=== PATIENT | male | born 1955 | race Caucasian/White ===

== ENCOUNTER 2020-11-17 20:54 | Emergency (ER) | payer SELFPAY ==
--- NOTE | ~2020-11-17 | CT_ITS ---
EXAMINATION: CT HEAD WITHOUT CONTRAST CT FACIAL BONES WITHOUT CONTRAST CT CERVICAL SPINE WITHOUT CONTRAST CLINICAL INFORMATION: Fall. Trauma. COMPARISON: None. TECHNIQUE: Imaging was performed from the skull base to vertex without intravenous administration of contrast. In addition, helical noncontrast CT imaging was acquired through the cervical spine and facial bones and source images were reviewed along with axial reconstructions and sagittal and coronal MPRs. [This CT examination was performed using dose optimization techniques as appropriate, variously including the following: *Automated exposure control *Adjustment of mA and/or kV according to patient size (this includes techniques or standardized protocols for targeted exams where dose is matched to indication/reason for exam; i.e. extremities or head) *Use of iterative reconstruction technique] DLP: 1555 mGy-cm FINDINGS: HEAD: No intracranial mass, hemorrhage, or midline shift is visualized. There is generalized global volume loss. There is mild prominence of the ventricles and the sulci . There is mild hypodensity of the periventricular white matter due to chronic small vessel ischemic disease. There are vascular calcifications of the internal carotid arteries bilaterally. . No extra-axial collections are identified. FACIAL BONES: There is a slightly displaced fracture of the left nasal bone with mild comminution. No other facial bone fracture present. Orbits and retrobulbar structures are normal. There is significant sinus disease of mucosal thickening and small air-fluid levels in the maxillary sinuses bilateral. Mucosal thickening in the ethmoid sinuses. The mastoid air cells and middle ear cavities are normally aerated. CERVICAL SPINE: There is no evidence of acute cervical spine fracture. Vertebral bodies remain normal in height. There is mild to moderate degenerative lipping at the anterior endplates of vertebrae. There is slight disc height narrowing C5-C6 disc level. Facet joints are normal. No pre- or paravertebral soft tissue abnormality is identified. Limited assessment of the lung apices is unremarkable. CT/CT cervical spine wo con IMPRESSION: 1. No acute intracranial abnormality. 2. Fracture of left nasal bone. 3. No acute abnormality of the cervical spine.
[2020-11-17 20:53] VITALS: BP 138/98; PULSE 92; O2SAT 98
[2020-11-17 20:55] VITALS: BMI 25.0
[2020-11-17 20:59] VITALS: BP 147/94; PULSE 83; RESP 18; TEMP 37.2; O2SAT 95
--- NOTE | 2020-11-17 21:56 | ED_ITS ---
HPI - Fall General Chief Complaint: Fall Stated Complaint: fall laceration etoh Time Seen by Provider: 11/17/20 21:56 Source: patient and staff interpreter Mode of arrival: EMS History of Present Illness HPI Narrative: 65-year-old male without significant past medical history states that he drank sixty-eight beers today tripped over the steps and fell down striking his face without loss of consciousness. Patient denies being on any medications and explicitly states he is not on blood thinners. Otherwise, he denies any shortness of breath, chest pain/palpitations, GI symptoms. Related Data Allergies Allergy/AdvReac Type Severity Reaction Status Date / Time No Known Allergies Allergy Verified 11/17/20 20:58 Review of Systems 2 Review of Systems: Pertinent positives and negatives as stated in HPI 10 point review of systems is otherwise negative. FOR[facility], [facility] Past Medical History Source: nursing notes reviewed Medical History ETOH abuse History of fall Social History Social History Advance Directives: No Advance Directives Information Provided: No Physical Exam Vital Signs: Vital Signs: Last Vital Signs Temp 98.8 F 11/17/20 22:36 Pulse 90 11/17/20 22:36 Resp 18 11/17/20 22:36 BP 166/91 H 11/17/20 22:36 Pulse Ox 98 11/17/20 22:36 Body Mass Index 25.0 VITAL SIGNS: Reviewed. GENERAL: Well developed, well nourished, in no acute distress. HEAD: Normocephalic/abrasion to right zygomatic that is hemostatic EYES: PERRLA, EOMI EARS: Ext canals without abnormality, TMs non-bulging and non-erythematous, no hemotympanum NOSE: Nares patent bilateral, swelling noted, no septal hematoma OROPHARYNX: Small laceration to intraoral side of the upper lip, posterior pharynx clear, abrasion to chin NECK: C-collar in place without midline cervical spine tenderness LUNGS: Normal breath sounds. No adventitious sounds or accessory muscle use. SpO2<98> CARDIOVASCULAR: Regular rate and rhythm without noted murmurs ABDOMEN: Soft, non-tender, non-distended with bowel sounds. MUSCULOSKELETAL: No tenderness, deformities, or effusions noted on gross inspection. EXTREMITIES: No cyanosis, clubbing or edema. SKIN: Inspection of the skin reveals no rashes NEUROLOGIC: Alert and oriented x 4. Strength and sensation to light touch were grossly intact x 4. Course Course Course Narrative: 65-year-old male with history and clinical presentation consistent with alcohol intoxication which led to mechanical fall without loss of consciousness. Review of all imaging negative for acute findings other than nasal fracture that is not displaced and scattered abrasions. Patient and daug hter were informed of results, bacitracin was applied to abrasions, and patient and daughter were informed that lip laceration would successfully heal on its own. Discharge Plan Discharge Clinical Impression: Fall, Alcohol intoxication, Abrasion of face, Laceration of intraoral surface of lip Patient Disposition: Home, Self-Care Instructions: Alcohol Intoxication (ED), Abrasion (ED), Laceration (ED), Laceration Without Closure (ED), Fall Prevention for Older Adults (ED) Additional Instructions: Erlinda un seguimiento con tim proveedor de atenci?n primaria en los pr?ximos 2 a 3 d?as para anh reevaluaci?n adicional para el manejo ambulatorio. Regrese a la johan de emergencias por un empeoramiento talya de los s?ntomas. Referrals: Physician,Unknown [Primary Care Provider] - 2 days Print Language: Malagasy
[2020-11-17] MEDS: Diphth,Pertus(ACell),Tet Adult 0.5 ML SYRINGE IM (22:34)
[2020-11-17 22:36] VITALS: BP 166/91; PULSE 90; RESP 18; TEMP 37.1; O2SAT 98
== END 2020-11-18 00:35 | disposition home or self-care (01) ==
PROVIDERS: Emergency Provider Student in an Organized Health Care Education/Training Program
DX: S00.81XA Abrasion of other part of head, initial encounter (principal); M54.2 Cervicalgia; G44.309 Post-traumatic headache, unspecified, not intractable; F10.129 Alcohol abuse with intoxication, unspecified; W01.0XXA Fall on same level from slipping, tripping and stumbling without subsequent striking against object, initial encounter; Y93.9 Activity, unspecified; Y92.9 Unspecified place or not applicable; Y99.9 Unspecified external cause status; Y90.9 Presence of alcohol in blood, level not specified; Z79.899 Other long term (current) drug therapy
CPT/HCPCS: 70450; 70486; 72125; 90471; 90715; 99284